=== PATIENT | male | born 1930 | race Caucasian/White ===

== ENCOUNTER 2016-08-31 02:55 | Emergency (ER) | payer MEDICARE, OTHER ==
[2016-08-31] MEDS ORDERED: LISI2.5T3 PO (03:12)
[2016-08-31] MEDS ORDERED: VITA-137 PO (03:12)
[2016-08-31] MEDS ORDERED: METO1TAB87 PO (03:12)
[2016-08-31] MEDS ORDERED: ASPI1TAB PO (03:12)
[2016-08-31] MEDS ORDERED: XARE20TA PO (03:12)
[2016-08-31] MEDS ORDERED: ALEN70SO PO (03:12)
[2016-08-31] MEDS ORDERED: FLOM5CAP PO (03:12)
[2016-08-31] MEDS ORDERED: VITA100T20 PO (03:12)
[2016-08-31] MEDS ORDERED: PRAV40TA2 PO (03:12)
[2016-08-31] MEDS ORDERED: VITA500C24 PO (03:12)
[2016-08-31] MEDS ORDERED: SILVER NITRATE APPLICATOR TOP ONE (04:45)
[2016-08-31] MEDS ORDERED: LIDOCAINE W/EPINEPHRINE 1% 20ML VIAL SC ONE (04:45)
[2016-08-31 05:17] VITALS: BP 138/77
== END 2016-08-31 05:19 | disposition home or self-care (01) ==
LOC: M ED 02:55
DX: S61.412A Laceration without foreign body of left hand, initial encounter (principal); I48.91 Unspecified atrial fibrillation; Z79.01 Long term (current) use of anticoagulants; W55.03XA Scratched by cat, initial encounter; Y92.89 Other specified places as the place of occurrence of the external cause; Y93.89 Activity, other specified; Y99.9 Unspecified external cause status

== ENCOUNTER → 2018-08-30 | Outpatient (REF) | payer MEDICARE, OTHER ==
[~2018-08-30] MED LIST: ALEN70SO PO; ASPI81TA26 PO; FLOM0.4C39 PO; LISI-1046 PO; METO1TAB87 PO; PRAV40TA2 PO; VITA-137 PO; VITA100T51 PO; VITA500C24 PO; XARE20TA PO
[2018-08-30 15:56] LABS: C REACTIVE PROTEIN QUANTITATIV < 0.30 MG/DL (0.00-0.30); RHEUMATOID FACTOR QUANT < 10.0 IU/ML (<15.0); URIC ACID 6.8 MG/DL (3.5-7.2)
[2018-09-06 00:08] LABS: ANTINUCLEAR ANTIBODIES DIRECT Negative (Negative); HLA-B27 Negative (.)
== END ==
LOC: M LABDRAW1 11:30
PROVIDERS: ATTEND Physician Assistant Medical
DX: M19.031 Primary osteoarthritis, right wrist (principal)